=== PATIENT | female | born 1960 | race Caucasian/White ===

== ENCOUNTER → 2017-04-05 | Outpatient (CLI) | payer OTHER ==
--- NOTE | 2017-04-05 14:24 | MAMMOGRAPHY REPORT ---
BILATERAL DIGITAL DIAGNOSTIC MAMMOGRAM TOMOSYNTHESIS WITH CAD AND TARGETED LEFT ULTRASOUND: 7 CLINICAL HISTORY: 56-year-old woman with a reported history of lumpy breasts on clinical exam present s with an area of nodularity in the left upper outer quadrant palpated by her physician. Also due fo r annual bilateral screening mammograms. TECHNIQUE: Bilateral CC and MLO 2-D and tomosynthesis images, repeat right cc tomosynthesis views wer e obtained. Current study was also evaluated with a Computer Aided Detection (CAD) system. COMPARISON: Comparison is made to exams dated: 07/03/2008 mammogram, 10/23/2013 mammogram, and 4 ultrasound. BREAST COMPOSITION: The tissue of both breasts is heterogeneously dense, which may obscure small mas ses. FINDINGS: A triangular palpable marker was placed on the skin overlying the left upper outer quadrant , denoting the density and nodularity pointed out by the patient. There is no evidence of a suspicio us mass, architectural distortion, new asymmetry or cluster of microcalcifications in the breasts. T here has been no significant interval change compared to prior exams. Targeted ultrasound was performed in the left upper outer quadrant in the area of reported nodularity described by the patient. She was unable to pinpoint a discrete mass during this exam. In the infe rior left axilla, there is a morphologically normal lymph node identified. No other suspicious solid or cystic mass is seen. IMPRESSION: ACR BI-RADS CATEGORY 2: BENIGN, TARGETED ULTRASOUND ACR BI-RADS CATEGORY 2: BENIGN Stable bilateral mammograms, without mammographic or targeted sonographic evidence of malignancy. No suspicious mammographic or sonographic abnormality to explain the nodularity in the left upper outer quadrant. Therefore, clinical follow-up is recommended, as biopsy of a clinically suspicious mass s hould not be precluded by negative imaging. Otherwise, recommend routine screening in 1 year. Approximately 10% of breast cancers are not detected with mammography. A negative mammographic report should not delay biopsy if a clinically suggestive mass is present. Yolanda Dang M.D. ay/:04/05/2017 13:46:45 Publishing Systems Analyst: Charisse HAWKINS(Estelle)(Shayla), [facility] letter sent: Normal 1/2 BI-RADS Code: ACR BI-RADS Category 2: Benign Ultrasound BI-RADS: ACR BI-RADS Category 2: Benign
== END | disposition home or self-care (01) ==
LOC: C.MAMM 09:59
PROVIDERS: ATTEND Family Medicine
DX: N63.21 Unspecified lump in the left breast, upper outer quadrant (principal)